=== PATIENT | female | born 1990 | race African-American/Black ===

== ENCOUNTER 2023-04-06 14:16 | Outpatient (CLI) | payer OTHER | END 2023-04-06 14:17 | disposition home or self-care (01) | LOC: CSHULT 14:16 | PROVIDERS: ATTEND Family Medicine | DX: R10.2 Pelvic and perineal pain (principal); N83.201 Unspecified ovarian cyst, right side; N88.8 Other specified noninflammatory disorders of cervix uteri | CPT/HCPCS: 76856 ==

== ENCOUNTER 2023-09-03 14:32 | Outpatient (CLI) | payer OTHER | END 2023-09-03 14:33 | disposition home or self-care (01) | LOC: CSHLAB 14:32 | PROVIDERS: ATTEND Obstetrics & Gynecology | DX: Z01.818 Encounter for other preprocedural examination (principal); R10.2 Pelvic and perineal pain | CPT/HCPCS: 93005; 93010 ==

== ENCOUNTER 2023-09-07 07:41 | Day surgery (SDC) | payer OTHER ==
[2023-09-03 15:19] VITALS: BMI 47.8
[2023-09-03 16:07] LABS: BHCG - Serum Negative (NEGATIVE); Hematocrit 35.1 % (34.9-44.5); Hemoglobin 11.1 g/dL (12.0-15.5); Mean Corpuscular HGB CONC 31.6 g/dL (32.0-36.0); Mean Corpuscular Hemoglobin 25.5 pg (27.0-33.0); Mean Corpuscular Volume 80.5 fL (81.6-98.3); Mean Platelet Volume 9.7 fL (7.4-10.4); Platelet Count 313 10x3/uL (150-450); Pregs Control Background? CLEAR/WHITE (CLR/WHITE); Pregs Control Bar Appear? YES (CONTROL BAR); RBC Distribution Width 14.1 % (11.5-14.5); Red Blood Cell (RBC) Count 4.36 10x6/uL (3.90-5.03); White Blood Cell (WBC) Count 9.5 10x3/uL (3.5-10.5)
[2023-09-03 16:12] LABS: Anion Gap 12 mmol/L (10-20); BUN (Urea Nitrogen) 11 mg/dL (7.0-18.7); Calc. Creatinine Clearance 0 mL/min (70-130); Calcium 8.8 mg/dL (7.8-10.44); Carbon Dioxide 27 mmol/L (22-29); Chloride 103 mmol/L (98-107); Estimated GFR 91; Glucose 82 mg/dL (70-105); Potassium 3.4 mmol/L (3.5-5.1); Sodium 139 mmol/L (136-145)
[2023-09-07] MEDS ORDERED: CeleCOXIB 100 MG CAP ONE (08:30)
[2023-09-07] MEDS ORDERED: Famotidine/PF 20 mg/2ml Vial ONE (08:31)
[2023-09-07] MEDS ORDERED: Gabapentin 300 MG CAP ONE (08:31)
[2023-09-07] MEDS ORDERED: Dexmedetomidine 200 MCG/2 ML VIAL ONE (08:37)
[2023-09-07] MEDS ORDERED: EPINEPHrine 1 MG/ML VIAL ONE (09:12)
[2023-09-07] MEDS ORDERED: Bupivacaine PF 0.5% 30 ML VIAL ONE (09:13)
[2023-09-07] MEDS ORDERED: Midazolam HCl 2 mg/2 ml Vial ONE (09:38)
[2023-09-07] MEDS ORDERED: CEFAZOLIN 2 GM VIAL ONE (09:38)
[2023-09-07] MEDS ORDERED: PROPOFOL 20 ML ONE (10:05)
[2023-09-07] MEDS ORDERED: Fentanyl 250 MCG/5 ML VIAL ONE (10:06)
[2023-09-07] MEDS ORDERED: Dexamethasone 20 MG/5 ML VIAL ONE (11:08)
[2023-09-07] MEDS ORDERED: Glycopyrrolate 0.2 MG/ML 5 ML SYRINGE ONE (11:12)
[2023-09-07] MEDS ORDERED: SUGAMMADEX SODIUM 200 MG/2 ML VIAL ONE (12:25)
[2023-09-07] MEDS ORDERED: Lidocaine 2% PF 5 ML VIAL ONE (12:44)
[2023-09-07] MEDS ORDERED: fentaNYL 50 mcg/mL 1 mL Vial ONE (13:07)
[2023-09-07] MEDS ORDERED: HYDROcodone/Acetaminophen 5/325 mg Tablet ONE (13:55)
== END 2023-09-07 16:00 | disposition home or self-care (01) ==
LOC: CSHSDC 07:41
PROVIDERS: ATTEND Student in an Organized Health Care Education/Training Program
PROC: 0UT94ZZ Resection of Uterus, Percutaneous Endoscopic Approach (ICD-10-PCS; principal; 2023-09-07)
DX: N72 Inflammatory disease of cervix uteri (principal); N87.9 Dysplasia of cervix uteri, unspecified; N80.03 Adenomyosis of the uterus; E11.9 Type 2 diabetes mellitus without complications; F41.9 Anxiety disorder, unspecified; F32.A Depression, unspecified; Z88.6 Allergy status to analgesic agent; Z88.8 Allergy status to other drugs, medicaments and biological substances; Z79.84 Long term (current) use of oral hypoglycemic drugs; Z79.899 Other long term (current) drug therapy
CPT/HCPCS: 80048; 84703; 85027; 86850; 86900; 86901; 88307; C9250; J0171; J0665; J1100; J2001; J2250; J2704; J3010; S0028

== ENCOUNTER 2024-01-19 09:20 | Emergency (ER) | payer OTHER ==
[2024-01-19] MEDS ORDERED: Ketorolac Tromethamine 30 MG (1 mL) VIAL ONE (10:15)
[2024-01-19] MEDS ORDERED: Morphine 4 MG/ML VIAL ONE ×2 (10:15→18:30)
[2024-01-19] MEDS ORDERED: Piperacillin/Tazobactam 4.5 GM VIAL ONE (10:15)
[2024-01-19] MEDS ORDERED: Ondansetron PF 4 MG/2 ML Vial ONE (10:15)
[2024-01-19 10:17] LABS: #Basophils 0.02 10x3/uL (0.0-0.2); #Eosinophils 0.04 10x3/uL (0.0-0.5); #Neutrophils 13.34 10x3/uL (1.5-8.4); %Basophils 0.1 % (0.0-2.0); %Eosinophils 0.2 % (0.0-6.0); %Lymphocytes 15.7 % (18.0-47.0); %Monocytes 7.9 % (0.0-10.0); %Neutrophils 75.5 % (40.0-75.0); Hemoglobin 9.9 g/dL (12.0-15.5); Mean Corpuscular HGB CONC 30.9 g/dL (32.0-36.0); Mean Corpuscular Hemoglobin 23.7 pg (27.0-33.0); Mean Corpuscular Volume 76.6 fL (81.6-98.3); Mean Platelet Volume 9.7 fL (7.4-10.4); Platelet Count 434 10x3/uL (150-450); RBC Distribution Width 14.8 % (11.5-14.5); Red Blood Cell (RBC) Count 4.18 10x6/uL (3.90-5.03); White Blood Cell (WBC) Count 17.7 10x3/uL (3.5-10.5)
[2024-01-19 10:35] LABS: ALT (SGPT) 22 U/L (8-55); AST (SGOT) 16 U/L (5-34); Albumin 2.8 g/dL (3.5-5.0); Alkaline Phosphatase 112 U/L (40-110); Anion Gap 15 mmol/L (10-20); BUN (Urea Nitrogen) Less than 4 mg/dL (7.0-18.7); Bilirubin, Total 0.7 mg/dL (0.2-1.2); Calc. Creatinine Clearance 0 mL/min (70-130); Calcium 9.8 mg/dL (7.8-10.44); Carbon Dioxide 20 mmol/L (22-29); Chloride 102 mmol/L (98-107); Estimated GFR 96; Globulin 5.8 g/dL (2.4-3.5); Glucose 89 mg/dL (70-105); Lipase 8 U/L (8-78); Potassium 3.4 mmol/L (3.5-5.1); Protein, Total 8.6 g/dL (6.0-8.3); Sodium 134 mmol/L (136-145)
[2024-01-19] MEDS ORDERED: Iopamidol 300 61% 100 ML VIAL FS ONE (14:48)
== END 2024-01-19 20:26 | disposition short-term general hospital (02) ==
LOC: CSHERS 09:20
DX: A41.9 Sepsis, unspecified organism (principal); K65.1 Peritoneal abscess; E11.9 Type 2 diabetes mellitus without complications; F17.290 Nicotine dependence, other tobacco product, uncomplicated
CPT/HCPCS: 36415; 74177; 80053; 83690; 85025; 87040; 93005; 96374; 96375; 96376; J1885; J2272; J2405; J2543; Q9967